=== PATIENT | male | born 1965 | race Caucasian/White ===

== ENCOUNTER 2016-04-24 17:33 | Inpatient (IN) | payer MEDICAID ==
[~2016-04-24] VITALS: Ht 177.8 cm; Wt 99.0 kg
[2016-04-24 18:06] LABS: BASOPHILS # (AUTO) 0.02 K/uL (0.00-0.20); BASOPHILS % (AUTO) 0.1 % (0.0-2.0); EOSINOPHILS # (AUTO) 0.01 K/uL (0.00-0.70); EOSINOPHILS % (AUTO) 0.05 % (1.0-6.0); HEMATOCRIT 46.7 % (41-53); HEMOGLOBIN 15.7 g/dL (13.5-17.5); LYMPHOCYTES # (AUTO) 0.6 K/uL (1.0-4.8); LYMPHOCYTES % (AUTO) 3.7 % (22.0-44.0); MEAN CORPUSCULAR HEMOGLOBIN 29.2 pg (26.0-34.0); MEAN CORPUSCULAR HGB CONC 33.6 G/dL (31.0-37.0); MEAN CORPUSCULAR VOLUME 87 fL (80-100); MONOCYTES # (AUTO) 0.7 K/uL (0.1-1.0); MONOCYTES % (AUTO) 4.1 % (2.0-9.0); NEUTROPHILS # (AUTO) 14.7 K/uL (1.8-7.7); NEUTROPHILS % (AUTO) 92.1 % (40.0-70.0); PLATELET COUNT (AUTO) 328 K/uL (150-450); RED BLOOD CELL COUNT(AUTO) 5.36 MIL/uL (4.50-5.90); RED CELL DISTRIBUTION WIDTH 13.1 % (11.5-14.5)
[2016-04-24 18:15] LABS: ANION GAP 14 mmol/L (8-16); CALCIUM, TOTAL 9.3 mg/dL (8.8-10.5); CARBON DIOXIDE 24 mmol/L (22-29); CHLORIDE 100 mmol/L (98-107); CREATININE 1.75 mg/dL (0.60-1.30); GLOMERULAR FILTR. RATE CALC 42 mL/min (>60); POTASSIUM 3.7 mmol/L (3.5-5.1); SODIUM SERUM 138 mmol/L (136-145); UREA NITROGEN, BLOOD 20 mg/dL (7-18)
[2016-04-24 18:20] LABS: ALANINE AMINOTRANSFERASE 38 U/L (12-78); ASPARTATE AMINOTRANSFERASE 32 U/L (15-37); BILIRUBIN,TOTAL 0.8 mg/dL (0.1-1.0); TOTAL PROTEIN, SERUM 8.5 g/dL (6.4-8.2)
[2016-04-24] MEDS ORDERED: HALOPERIDOL LACTATE 5 MG/ML VIAL IM ONE (18:30)
[2016-04-24] MEDS ORDERED: LORazepam 2 MG/ML VIAL IM ONE (18:30)
[2016-04-24] MEDS ORDERED: DiphenhydrAMINE HCL 50 MG/ML VIAL IM ONE (18:30)
[2016-04-24 18:32] LABS: RBC MORPHOLOGY COMMENT NORMAL RBC MORPH
[2016-04-24] MEDS ORDERED: ZOLPIDEM TARTRATE 10 MG TABLET PO PRN (18:45)
[2016-04-24] MEDS ORDERED: HALOPERIDOL 5 MG TABLET PO PRN (18:45)
[2016-04-24] MEDS ORDERED: LORazepam 2 MG TABLET PO PRN (18:45)
[2016-04-25 01:39] VITALS: BP 109/59
[2016-04-25] MEDS ORDERED: INFLUENZA VIRUS VACCINE QVS 2016-17 (3YR+)/PF 60 MCG/0.5 ML SYRINGE IM ONE (02:45)
[2016-04-25 06:26] LABS: GLUCOSE,POINT OF CARE 91 MG/DL (70-110)
[2016-04-25 08:05] VITALS: BP 100/56
[2016-04-25] MEDS ORDERED: IBUPROFEN 400 MG TABLET PO PRN (09:15)
[2016-04-25] MEDS ORDERED: ACETAMINOPHEN 325 MG TABLET PO PRN (09:15)
[2016-04-25] MEDS: RisperiDONE 2 MG TABLET PO SCH ×2 (09:52→17:16)
[2016-04-25 16:12] VITALS: BP 124/71
[2016-04-26 07:22] VITALS: BP 120/67
[2016-04-26 08:05] VITALS: BP 129/86
[2016-04-26] MEDS: RisperiDONE 2 MG TABLET PO SCH ×2 (08:59→17:00)
[2016-04-26 16:09] VITALS: BP 135/79
[2016-04-27 06:58] VITALS: BP 109/60
[2016-04-27 08:05] VITALS: BP 140/77
[2016-04-27] MEDS: RisperiDONE 2 MG TABLET PO SCH ×2 (08:45→09:00)
[2016-04-27] MEDS ORDERED: RISP2 PO (13:44)
== END 2016-04-27 15:40 | disposition home or self-care (01) | DRG 750 ==
LOC: EMS 17:37 → B3A 21:55
PROVIDERS: ADMIT Psychiatry & Neurology Child & Adolescent Psychiatry; ATTEND Psychiatry & Neurology Child & Adolescent Psychiatry
DX: F20.0 Paranoid schizophrenia (principal); N17.9 Acute kidney failure, unspecified; F15.20 Other stimulant dependence, uncomplicated; Z78.1 Physical restraint status; I12.9 Hypertensive chronic kidney disease with stage 1 through stage 4 chronic kidney disease, or unspecified chronic kidney disease; E86.0 Dehydration; D72.829 Elevated white blood cell count, unspecified; N18.9 Chronic kidney disease, unspecified; Z28.21 Immunization not carried out because of patient refusal; Z71.51 Drug abuse counseling and surveillance of drug abuser
CPT/HCPCS: 82962; 90471; 96372; 99285; G0480; J1200; J1630; J2060